=== PATIENT | male | born 1985 | race Caucasian/White ===

== ENCOUNTER 2020-05-28 14:15 | Emergency (ER) | payer MEDICAID ==
[~2020-05-28] VITALS: Ht 190.5 cm; Wt 75.5 kg
[2020-05-28 14:57] VITALS: BP 129/88
--- NOTE | 2020-05-28 14:57 | NUR ---
first contact with pt. pt stated "i used meth and speed yesterday. i can see something and i can hear something." pt denies si/hi. pt has flight of ideas. resps even and unlabored. bp/spo2 monitors in place. call light within reach.
[2020-05-28] MEDS ORDERED: OLANZAPINE 10 MG TABLET ONE (15:05)
[2020-05-28] MEDS ORDERED: LORazepam 2 MG/ML, 1ML ONE (15:05)
--- NOTE | 2020-05-28 15:11 | NUR ---
pt medicated per emar. pt tolerated well.
[2020-05-28] MEDS ORDERED: OLANZAPINE 10 MG TABLET PO ONE (15:30)
[2020-05-28] MEDS ORDERED: LORazepam 2 MG/ML, 1ML IM ONE (15:30)
--- NOTE | 2020-05-28 15:51 | NUR ---
pt stated"i need a little bit more time." edmd notified. pt's aox4. resps even and unlabored. bp/spo2 monitors in place. call light within reach.
--- NOTE | 2020-05-28 16:29 | NUR ---
Patient given discharge instructions and they have confirmed that they understand the instructions.
== END 2020-05-28 16:30 ==
LOC: ED 16:24
DX: F15.159 Other stimulant abuse with stimulant-induced psychotic disorder, unspecified (principal); F41.9 Anxiety disorder, unspecified; R45.1 Restlessness and agitation; F17.210 Nicotine dependence, cigarettes, uncomplicated
CPT/HCPCS: 96372; 99283; 99406; J2060; 99284

== ENCOUNTER 2020-05-29 03:17 | Emergency (ER) | payer MEDICAID ==
[~2020-05-29] VITALS: Ht 190.5 cm; Wt 77.2 kg
[2020-05-29 03:20] VITALS: BP 106/65
--- NOTE | 2020-05-29 03:54 | NUR ---
not in lobby, next pt roomed
--- NOTE | 2020-05-29 04:43 | NUR ---
PT TO ROOM FROM LOBBY, STATES THAT "THINGS JUST AREN'T WORKING OUT FOR ME TO GET HOME", CONTINUED METH USE
[2020-05-29] MEDS ORDERED: LORazepam 1MG TABLET PO ONE (05:00)
[2020-05-29] MEDS ORDERED: LORazepam 1MG TABLET ONE (05:01)
--- NOTE | 2020-05-29 05:24 | NUR ---
PATIENT GIVEN FOOD PER REQUEST
--- NOTE | 2020-05-29 06:21 | NUR ---
PATIENT RESTING IN BED/EVEN UNLABORED RESPIRATIONS NOTED AT THIS TIME, NO NOTED NEEDS AT THIS TIME. SITTER WITHIN VIEW OF PATIENT. WILL CONTINUE TO MONITOR.
--- NOTE | 2020-05-29 06:53 | NUR ---
REPORT GIVEN TO ONCOMING RN
--- NOTE | 2020-05-29 08:18 | NUR ---
ROAD TESTED PT, PT ABLE TO STAND AND AMBULATE ON OWN, PT IS AGITATED. NOT WANTING TO LEAVE DISPITE DC ORDERS. RN IN TO CALM PT
--- NOTE | 2020-05-29 08:37 | NUR ---
PT STABLE ON DC, GIVEN TAXI VOUCHER, VERIFIED ALL BELONGINGS WITH PT ON DC
== END 2020-05-29 08:34 | disposition home or self-care (01) ==
LOC: ED 06:53
DX: F15.159 Other stimulant abuse with stimulant-induced psychotic disorder, unspecified (principal); R45.851 Suicidal ideations; F41.9 Anxiety disorder, unspecified
CPT/HCPCS: 99283